=== PATIENT | female | born 1995 | race Caucasian/White ===

== ENCOUNTER 2022-11-11 06:00 | Outpatient (CLI) | payer BC, SELFPAY | END 2022-11-11 06:01 | disposition home or self-care (01) | LOC: OPS 11-25 11:33 | PROVIDERS: PCP Family Medicine; Visit Provider Family Medicine | DX: Z01.818 Encounter for other preprocedural examination (principal) ==

== ENCOUNTER 2022-11-25 05:38 | Inpatient (IN) | payer BC, SELFPAY ==
--- NOTE | 2022-11-11 09:26 | ANES.PREANE2 ---
Pre-Anesthetic Assessment Operation Date: 11/25/22 07:00 Proposed Procedures p Section Repeat BTL(Bilateral) - Chin Devlin MD Familial anesthetic complications: vomiting during previous for failure to progress Social No alcohol and No tobacco Exam alert, oriented x 3, clear to auscultation bilaterally and regular rate & rhythm Airway Mallampati: Class I Dentition: full Pulmonary None reported CV/HEM None reported None reported Hepatic None reported GI Gastroesophageal Reflux Disease Metabolic None reported Musc/skel None reported Neuropsych None reported Anesthetic Plan ASA status: 1 Anesthesia: Regional (specify below) Other: spinal Risk of > 500 ml blood loss (7ml/kg in children): No Data Anesthesia Cardiac Studies: No Data to Display
[2022-11-25] VITALS (72 sets, daily range): BP systolic 106–163; BP diastolic 55–90; PULSE 68–102; RESP 15–16; TEMP 36.2–37; O2SAT 91–99; BMI 39.7
[2022-11-25] MEDS: lactated ringers 1,000 ML 999 ML IV (05:59)
[2022-11-25 06:01] LABS: Basophils % 0.2 %; Hematocrit 36.5 % (37.0-47.0); Hemoglobin 12.1 g/dL (11.5-15.3); Lymphocytes # 0.6 10^3/uL (0.8-4.8); Lymphocytes % 6.8 %; Mean Corpuscular HGB Conc 33.2 g/dL (30.0-36.0); Mean Corpuscular Hemoglobin 28.3 pg (28.0-34.0); Mean Corpuscular Volume 85.3 fl (81-99); Mean Platelet Volume 11.8 fL (7.4-10.4); Monocytes # 0.8 10^3/uL (0.2-0.9); Monocytes % 9.3 %; Neutrophils % 83.3 %; Nucleated Red Blood Cells % 0 %; Platelet Count 187 10^3/cmm (130-400); Red Blood Count 4.28 10^6/uL (4.1-5.3); Red Cell Distribution Width 13.1 % (12.1-15.1); White Blood Count 8.3 10^3/uL (4.0-10.0)
[2022-11-25] MEDS: metoclopramide 5 mg/mL SDV 2 mL 10 MG IVP (06:49)
[2022-11-25] MEDS: citric acid-sodium citrate 30 mL UDC PO (06:49)
[2022-11-25] MEDS: famotidine 20 mg/2 mL INJ IVP (06:49)
--- NOTE | 2022-11-25 06:51 | PM.OBGYHP ---
Providers/Chief Complaint Admitting Physician: Chin Devlin MD Primary Care Provider: Chin Devlin MD Chief Complaint: induction HPI FINANCIAL INSTITUTION MANAGER History of Present Illness Carline Hernandez is a 27 year old para 3 para 1-0-1-1 female at 39 weeks estimated gestational age presenting for a repeat section and a bilateral tubal ligation. The patient has had an unremarkable . There have been no complications. Her labs have been unremarkable. Her blood type is O-. Her antibody screen was negative. Her glucose screen was marginal. Her GBS status is positive. She is rubella immune. The remainder of her infectious disease profile is within normal limits. Drug screen was not performed. Present Details : 3 Para: 1 Date of Last Menstrual Period: 02/24/22 Calculated Date of Delivery: 12/01/22 Gestational Age Based on Last Menstrual Period: 39 Review of Systems General: Reports: 10 or more systems reviewed and unremarkable except in HPI and below Const: Reports: fatigue; Denies: fever(s) Eyes: Denies: change in vision Card: Denies: chest pain Musc: Reports: back pain Michael/Lymph: Denies: easy bruising Medications/Allergies Allergies Allergy/AdvReac Type Severity Reaction Status Date / Time shellfish derived Allergy ALGY-Anaphy Verified 11/25/22 05:56 laxis PFSH FINANCIAL INSTITUTION MANAGER PFSH: Surgical History (Updated 11/25/22 @ 06:55 by Chin Devlin MD) History of Vitals/I&O/Wt Last Vital Signs O2 Del Method 11/25/22 05:00 Weight last 48 hrs Weight 228 lb Physical Exam Const: COMMON NORMALS: patient oriented x3 and alert HENMT: COMMON NORMALS: moist oral mucous membranes HEAD & SCALP: normal to inspection Chest: COMMONS NORMALS: normal inspection of the chest Resp: COMMON NORMALS: clear to auscultation bilaterally AUSCULTATION: clear to auscultation bilaterally Cardio: COMMON NORMALS: regular rate and regular rhythm RATE: regular rate RHYTHM: regular rhythm GI: INSPECTION: Yes normal to inspection and Yes other (Gravid) Extremity: COMMON NORMALS: normal to inspection GENERAL: Yes edema (Trace) Neuro: COMMON NORMALS: patient oriented x3, moves all extremities and no sensory deficits noted SENSORIUM/ORIENTATION: Yes alert Psych: COMMON NORMALS: mental status grossly normal Skin: COMMON NORMALS: no rashes or lesions noted GENERAL SKIN EXAM: no rashes or lesions noted Data 11/25/22 05:25 A&P Assessment and plan (1) 39 weeks gestation of : (2) Sterilization: We discussed the patient's desire for sterilization earlier in her . We discussed the risks of bleeding, infection, damage to intra-abdominal organs. We also discussed the possibility of an ectopic post tubal. We also discussed a 1-200 chance becoming again after her tubal as well. She has no further questions and wishes to proceed. (3) History of : She is presenting for a repeat section. We once again discussed the risks including the risks of bleeding, infection, damage intra-abdominal organs. The patient has no further questions and wishes to proceed. Attestations Medical Necessity Statement*: Anticipate routine and post care. Coding Level of Care Code Acute Code for Chg Fwd Diagnoses 39 weeks gestation of Z3A.39 Sterilization Z30.2 History of Z98.891
--- NOTE | 2022-11-25 06:54 | ANES.PREANE2 ---
Pre-Anesthetic Assessment Height/Weight: Height 1.61 m Weight 103.419 kg O2 Del Method 11/25/22 05:00 Preop Diagnosis: repeat BTL Operation Date: 11/25/22 07:00 Proposed Procedures p Section Repeat BTL(Bilateral) - Chin Devlin MD Was Beta Ruma taken within 24 hours: N/A Was Clonidine taken within 24 hours: N/A Last intake: 2400 Exam alert and oriented x 3 Airway Submandibular: within normal limits Cervical ROM: within normal limits Mallampati: Class II Dentition: full History/ROS No significant history except as noted Pulmonary None reported CV/HEM None reported None reported Hepatic None reported GI None reported Metabolic None reported Musc/skel None reported Neuropsych None reported Anesthetic Plan ASA status: 2 Anesthesia: Regional (specify below) Other: spinal with general backup Risk of > 500 ml blood loss (7ml/kg in children): Yes, adequate IV access and fluids planned Medications/Allergies Allergies Allergy/AdvReac Type Severity Reaction Status Date / Time shellfish derived Allergy ALGY-Anaphy Verified 11/25/22 05:56 laxis Current Medications Generic Name Dose Route Start Last Admin Trade Name Freq PRN Reason Stop Dose Admin Lactated Ringer's 1,000 mls @ 999 mls/hr 11/25/22 05:55 11/25/22 05:59 Lactated Ringers IV 11/25/22 06:55 999 mls/hr .Q1H1M ONE Administration PFSH Anesthesia Surgical History (Updated 11/25/22 @ 06:55 by Chin Devlin MD) History of Female Reproductive History Date of last menstrual period: 02/24/22 : 3 Data Anesthesia 11/25/22 05:25 Short CBC 11/25/22 Range/Units 05:25 WBC 8.3 (4.0-10.0) 10^3/uL Hgb 12.1 (11.5-15.3) g/dL Hct 36.5 L (37.0-47.0) % MCV 85.3 (81-99) fl Plt Count 187 (130-400) 10^3/cmm Neut % (Auto) 83.3 % Neut # (Auto) 6.90 (1.8-7.7) 10^3/uL Cardiac Studies: No Data to Display
[2022-11-25] MEDS: ceFAZolin 2,000 MG in sodium chloride 0.9% (plus) 50 ML 100 MG IV (06:55)
--- NOTE | 2022-11-25 08:20 | PM.OP ---
Operative Report Date of procedure: November 25, 2022 Pre-op diagnosis: 1. 27-year-old with a history of a section presenting for a repeat section 2. Multigravida desiring sterilization Post-op diagnosis: Status post repeat lower transverse section and bilateral tubal ligation Procedure done: 1. Lower transverse section 2. Bilateral tubal ligation using modified Debbie technique Specimens removed/disposition: 1. Female with a weight of 6 pounds 15 ounces and Apgars of 8 and 9 2. Placenta with a three-vessel cord delivered intact 3. Bilateral fallopian tube segments with the right segment being tagged Pathology: Bilateral fallopian tube segments with the right segment being tagged Surgeon: Chin Devlin Anesthesia: Other (Spinal) Estimated blood loss (mL): 600 Procedure: The patient was brought back to the operating room where she was prepped and draped in usual sterile fashion. Anesthesia was found to be adequate. A lower transverse skin incision was then made with a #10 blade. I then dissected down to the underlying subcutaneous tissue until arriving at the prerectal fascia. The fascia was then nicked with the scalpel bilaterally. The fascial incisions were then carried laterally with Cleary scissors. Attention was then turned to the superior aspect of the incision which was grasped with kochers and tented up away from the underlying rectus abdominis muscles. The muscles were then dissected away from the fascia manually, and later with Cleary scissors. Attention was then turned to the inferior aspect of the incision, and the fascia was dissected away from the underlying muscle in similar fashion. The rectus abdominis muscles were then spread manually. The peritoneum was entered manually. Excellent visualization of the uterus was noted. A lower transverse uterine incision was then made with a #10 blade. Upon arriving at the intrauterine cavity, the uterine incision was then extended manually. The was noted to be in vertex position. The baby was delivered without difficulty. After delivery of the head, the mouth and nose were suctioned at the site of the incision. There was no meconium. There was a body cord that the baby was delivered through. The baby was then completely delivered and placed on the abdomen. The cord was cut and clamped. The baby was then handed to the waiting nurse. The placenta was removed intact. The uterus was externalized. The intrauterine cavity was cleansed of any remaining debris. The uterine incision was reapproximated in 2 layers. The first layer was performed with 0 Vicryl in a running locked stitch. The second layer was an imbricating stitch also using 0 Vicryl. Attention was then turned to the left fallopian tube which was ligated cut and cauterized with 0 chromic in a modified Tyler fashion. Attention was then turned to the right fallopian tube which was also ligated cut and cauterized in similar fashion. The uterus was replaced into the abdomen. The peritoneum was then irrigated with warm saline. I reexamined the uterine incision and found it to be hemostatic. The rectus abdominis muscles were then reapproximated using 0 Vicryl in a running stitch. The fascia was then reapproximated using 0 Vicryl in running stitch. The subcutaneous tissue was then reapproximated using 0 Vicryl in a running stitch. The skin was reapproximated using nabor. A sterile dressing was placed. All counts were correct x2. Both the mother and baby were in stable condition.
--- NOTE | 2022-11-25 14:20 | ANE.PACU2 ---
Inpatient post-anesthesia follow up: Airway intact: Yes Vital signs: Temperature 97.2 F Pulse Rate 88 Respiratory Rate 16 Blood Pressure 121/75 Pulse Oximetry 94 Oxygen Delivery Me thod Room Air Oxygen Flow Rate Fraction of Inspir ed Oxygen Hydration adequate: Yes Nausea and vomiting: No Pain level: 1 Mental status: Baseline
[2022-11-25] MEDS: ketorolac 30 mg/mL INJ IVP ×2 (15:08→20:40)
[2022-11-25] MEDS: docusate sodium 100 mg Capsule PO (18:22)
[2022-11-25] MEDS: ferrous sulfate EC 325 mg Tablet PO (18:22)
[2022-11-25] MEDS: sodium chloride 0.9% 500 ML 999 ML IV (18:59)
[2022-11-25] MEDS: dextrose 5%-lactated ringers 1,000 ML 125 ML IV (20:15)
[2022-11-25] MEDS: acetaminophen 325 mg Tablet 650 MG PO (20:39)
[2022-11-25 20:47] LABS: Hematocrit 33.4 % (37.0-47.0); Hemoglobin 11.1 g/dL (11.5-15.3); Mean Corpuscular HGB Conc 33.2 g/dL (30.0-36.0); Mean Corpuscular Hemoglobin 28.4 pg (28.0-34.0); Mean Corpuscular Volume 85.4 fl (81-99); Mean Platelet Volume 11.5 fL (7.4-10.4); Platelet Count 189 10^3/cmm (130-400); Red Blood Count 3.91 10^6/uL (4.1-5.3); Red Cell Distribution Width 13.2 % (12.1-15.1); White Blood Count 12.9 10^3/uL (4.0-10.0)
[2022-11-26] MEDS: HYDROcodone-acetaminophen 5-325 mg Tablet PO ×3 (02:55→13:08)
[2022-11-26 03:01] VITALS: BP 102/60; PULSE 83
--- NOTE | 2022-11-26 07:01 | P.DS_ITS ---
Discharge Providers OPERATIONS VICE PRESIDENT Date of Admission: 11/25/22 05:38 Date of Discharge: 11/26/22 Attending Provider at Admission: Chin Devlin MD Attending Provider at Discharge: Chin Devlin MD Primary Care Provider: Chin Devlin MD Diagnoses at Discharge Discharge Diagnosis (1) 39 weeks gestation of : Status: Acute (2) Sterilization: Status: Acute (3) History of : Status: Acute Reason for Visit Reason for Visit: induction Hospital Course Hospital Course The patient presented to the hospital for a repeat section and tubal ligation. The procedure was unremarkable. The patient's course was also unremarkable. Her bleeding was minimal. Her pain was well controlled. She breast-fed well. She passed flatus on the day of surgery and her diet was advanced without difficulty. Her vitals were stable and her urine output was appropriate. Information Peripartum Data: Delivery Method: Physical Exam Narrative: She is in no acute distress Lungs are clear auscultation bilaterally Her heart has a regular rate and rhythm Her fundus is below the umbilicus and firm Her dressing is clean, dry and intact Her extremities have trace edema Urinary Catheter Management: Urena: Cath Placed During This Visit: yes, but has since been removed by the nurse Reason for Continuing Indwelling Catheter: Decision to DC Catheter Urinary Catheter Date of Insertion: 11/25/22 Urinary Catheter Time of Insertion: 07:10 Date Urinary Catheter Removed: 11/26/22 Time Urinary Catheter Discontinued: 03:06 Discharge Data Studies Completed and Pending Pending at discharge Category Date Time Status Complete Crossmatch Routine Lab 11/25/22 05:25 Results Rho D Immune Globulin Routine Lab 11/25/22 05:25 Results Type and Screen Routine Lab 11/25/22 05:25 Results Laboratory Results WBC 12.9 10^3/uL (4.0-10.0) H 11/25/22 20:30 RBC 3.91 10^6/uL (4.1-5.3) L 11/25/22 20:30 Hgb 11.1 g/dL (11.5-15.3) L 11/25/22 20:30 Hct 33.4 % (37.0-47.0) L 11/25/22 20:30 MCV 85.4 fl (81-99) 11/25/22 20:30 MCH 28.4 pg (28.0-34.0) 11/25/22 20:30 MCHC 33.2 g/dL (30.0-36.0) 11/25/22 20:30 RDW 13.2 % (12.1-15.1) 11/25/22 20:30 Plt Count 189 10^3/cmm (130-400) 11/25/22 20:30 MPV 11.5 fL (7.4-10.4) H 11/25/22 20:30 Neut % (Auto) 83.3 % 11/25/22 05:25 Lymph % (Auto) 6.8 % 11/25/22 05:25 [place] % (Auto) 9.3 % 11/25/22 05:25 Eos % (Auto) 0.0 % 11/25/22 05:25 Baso % (Auto) 0.2 % 11/25/22 05:25 Neut # (Auto) 6.90 10^3/uL (1.8-7.7) 11/25/22 05:25 Lymph # (Auto) 0.6 10^3/uL (0.8-4.8) L 11/25/22 05:25 [place] # (Auto) 0.8 10^3/uL (0.2-0.9) 11/25/22 05:25 Eos # (Auto) 0.0 10^3/uL (0.0-0.8) 11/25/22 05:25 Baso # (Auto) 0.0 10^3/uL (0.0-0.1) 11/25/22 05:25 Nucleated RBC % (auto) 0 % 11/25/22 05:25 Nucleated RBCs # 0.0 /100WBC 11/25/22 05:25 Blood Type O Negative 11/25/22 05:25 Rho(D) Type Negative 11/25/22 05:25 Antibody Screen Negative 11/25/22 05:25 Screen Negative (Negative) 11/25/22 20:30 Vitals Last Vital Signs Temp 98.0 F 11/25/22 18:24 Pulse 83 11/26/22 03:01 Resp 16 11/25/22 18:24 BP 102/60 11/26/22 03:01 Pulse Ox 96 11/25/22 18:24 O2 Del Method 11/25/22 18:24 Discharge Plan Discharge Patient Disposition: Home Condition: Stable Prescriptions: New docusate sodium 100 mg Capsule 100 mg PO BID Qty: 14 0RF ibuprofen 800 mg Tablet 800 mg PO TID Qty: 45 0RF hydrocodone-acetaminophen 5-325 mg Tablet 1 tab PO Q6H PRN (Reason: Moderate To Severe Pain) Qty: 28 0RF -U 106.5-1 mg Capsule 1 cap PO BREAKFAST Qty: 100 3RF Discharge Orders: Discharge Order (Routine); Ordered 11/26/22 Ordered By: Chin Devlin Referrals: Chin Devlin MD [Primary Care Provider] - 11/29/22 Discharge Diet: Usual diet Discharge Activity: Limit activity as instructed Patient Instructions: Opioid Safety Discharge Attestations OPERATIONS VICE PRESIDENT Time Spent in Discharge Care*: less than 30 min Coding Level of Care Code Acute Code for Chg Fwd Diagnoses 39 weeks gestation of Z3A.39 Sterilization Z30.2 History of Z98.891
[2022-11-26] MEDS: prenatal vitamin Capsule 1 CAP PO (07:26)
[2022-11-26] MEDS: ferrous sulfate EC 325 mg Tablet PO (07:27)
[2022-11-26] MEDS: ibuprofen 800 mg tablet PO (13:08)
[2022-11-26 14:08] VITALS: BP 117/77; PULSE 90; TEMP 36.8
[2022-11-26 14:10] VITALS: BP 117/77; PULSE 90; RESP 16; TEMP 36.8
[2022-11-26 14:44] VITALS: BP 117/77; PULSE 90; RESP 16; TEMP 36.8
== END 2022-11-26 14:50 | disposition home or self-care (01) | DRG 785 ==
PROVIDERS: Admitting Provider Family Medicine; PCP Family Medicine; Visit Provider Family Medicine
PROC: 10D00Z1 Extraction of Products of Conception, Low, Open Approach (ICD-10-PCS; CPT 59514; principal; 2022-11-25 07:00)
DX: O34.219 Maternal care for unspecified type scar from previous cesarean delivery (principal); Z3A.39 39 weeks gestation of pregnancy; Z37.0 Single live birth; O99.824 Streptococcus B carrier state complicating childbirth; O69.82X0 Labor and delivery complicated by other cord entanglement, without compression, not applicable or unspecified; Z30.2 Encounter for sterilization
CPT/HCPCS: 12345; 36415; 36430; 51702; 59409; 85025; 85027; 85460; 86850; 86900; 88302; 90384; 96374; 96376; J0690; J1885; J2274; J2370; J2590; J2765; J3490; J7040; J7120; J7121

== ENCOUNTER → 2025-07-04 10:00 | Outpatient (BNVA) | payer BC, SELFPAY | PROVIDERS: PCP Family Medicine; Visit Provider Nurse Practitioner Women's Health | DX: N89.8 Other specified noninflammatory disorders of vagina (principal) | CPT/HCPCS: 87255 ==